=== PATIENT | female | born 1990 | race Two or more races ===

== ENCOUNTER 2024-06-05 20:04 | Emergency (ER) | payer MEDICAID, SELFPAY ==
[2024-06-05 20:06] VITALS: BMI 20.1
[2024-06-05 20:46] VITALS: BP 108/70; PULSE 76; RESP 16; TEMP 36.9; O2SAT 96
--- NOTE | 2024-06-05 21:12 | PD.EDRME ---
Rapid Medical Screening Exam RME Arrival date/time: 06/05/24 20:04 34F with history of alcoholic cirrhosis, hyperthyroidism, and psych presents to ED with 4 days of bright red rectal bleeding and some red/back vomitus. Patient states her last endoscopy and colonoscopy 2 months ago were benign, but the ones from last year showed pre-cancer cells. Chief Complaint: GI Bleed Time Seen by Provider: 06/05/24 22:51 Vital signs: Vital Signs Temperature 98.5 F 06/05/24 20:46 Pulse Rate 76 06/05/24 20:46 Respiratory Rate 16 06/05/24 20:46 Blood Pressure 108/70 06/05/24 20:46 Pulse Oximetry (%) 96 06/05/24 20:46 Oxygen Delivery Method Room Air 06/05/24 20:46
[2024-06-05 21:59] LABS: Basophils # (Auto) 0.1 Thou/mm3 (0.0-0.2); Basophils % (Auto) 1 % (0-2.5); Eosinophils # (Auto) 0.2 Thou/mm3 (0.0-0.5); Eosinophils % (Auto) 3 % (0-10); Hematocrit 39.5 % (36.0-46.0); Hemoglobin 13.5 g/dL (12.0-16.0); Immature Granulocytes % (Auto) 0 % (0-0); Immature Granulocytes Auto 0.02 Thou/mm3 (0.00-0.00); Lymphocytes # (Auto) 2.9 Thou/mm3 (1.0-4.8); Lymphocytes % (Auto) 37 % (10-50); Mean Corpuscular HGB Conc 34.2 g/dl (31.0-37.0); Mean Corpuscular Hemoglobin 31.8 pg (25.0-35.0); Mean Corpuscular Volume 93 fL (80-100); Monocytes # (Auto) 0.5 Thou/mm3 (0.0-0.8); Monocytes % (Auto) 6 % (0-12); Neutrophils # (Auto) 4.1 Thou/mm3 (1.8-7.7); Neutrophils % (Auto) 53 % (37-80); Nucleated Red Blood Cell % 0 /100 WBC (0); Platelet Count 222 Thou/mm3 (140-440); RDW Standard Deviation 45.2 fL (36.4-46.3); Red Blood Count 4.24 Miln/mm3 (4.00-5.20); White Blood Count 7.8 Thou/mm3 (3.6-11.0)
[2024-06-05 22:16] LABS: INR 1.1 (0.9-1.3); Partial Thromboplastin Time 27.1 Seconds (22.0-36.0); Prothrombin Time 11.7 Seconds (9.0-12.2)
[2024-06-05 22:24] LABS: Alanine Aminotransferase 24 U/L (10-49); Albumin, Serum 4.2 gm/dL (3.5-5.0); Albumin/Globulin Ratio 1.8 (1.2-2.2); Alkaline Phosphatase 118 U/L (46-116); Anion Gap 7 (7-16); Aspartate Amino Transferase 67 U/L (0-34); BUN/Creatinine Ratio 20 Ratio (12-20); Bilirubin,Total 1.2 mg/dL (0.3-1.2); Blood Urea Nitrogen 16 mg/dL (9-23); Calcium 9.3 mg/dL (8.3-10.6); Calcium (Corrected) 9.3 mg/dL (8.5-10.1); Carbon Dioxide 31.3 mMol/L (20.0-31.0); Chloride 94 mMol/L (98-107); Creatinine (Component) 0.8 mg/dL (0.6-1.3); Estimated Creatinine Clearance 79.5 mL/min (>60); Globulin 2.3 gm/dL (2.3-3.5); Glucose 96 mg/dL (74-106); Osmolality,Calculated 265 (275-295); Potassium 3.5 mMol/L (3.4-5.1); Sodium 132 mMol/L (136-145); Total Protein 6.5 gm/dL (5.7-8.2); eGFR > 60 See Note
--- NOTE | 2024-06-05 22:52 | PD.EDGIBLD ---
ED GI Bleed RME/HPI General Chief complaint: GI Bleed Stated complaint: VOMITING BLOOD, BLOOD IN STOOL Time Seen by Provider: 06/05/24 22:51 Arrival date/time: 06/05/24 20:04 34F with history of alcoholic cirrhosis, hyperthyroidism, and psych presents to ED with 4 days of bright red rectal bleeding and some red/black vomitus yesterday, but not today.. Patient states her last endoscopy and colonoscopy 2 months ago were benign, but the ones from last year showed pre-cancer cells. Limitations: no limitations RME / HPI RME / HPI Narrative: 06/05/24 20:04 34F with history of alcoholic cirrhosis, hyperthyroidism, and psych presents to ED with 4 days of bright red rectal bleeding and some red/back vomitus. Patient states her last endoscopy and colonoscopy 2 months ago were benign, but the ones from last year showed pre-cancer cells. Related Data Previous Rx's ?Medication ?Instructions ?Recorded spironolactone 25 mg tablet 25 mg PO QDAY #20 tabs 05/16/23 lidocaine 5 % topical ointment 1 applic topical BID PRN pain #30 06/05/24 grams ondansetron 4 mg disintegrating 4 mg PO Q8H PRN nausea and 06/05/24 tablet vomiting #14 tabs Allergies Allergy/AdvReac Type Severity Reaction Status Date / Time NKA* Allergy Uncoded 06/01/11 09:57 Review of Systems Review of Systems Systems Reviewed: All systems reviewed, normal except as documented Constitutional Constitutional: Reports system reviewed and no additional complaints, except as documented, Denies fever(s) and Denies headache(s) ENT Ears, Nose, Mouth, and Throat: Denies disequilibrium and Denies headache(s) Cardiovascular Cardiovascular: Reports system reviewed and no additional complaints, except as documented, Denies chest pain and Denies dyspnea Respiratory Respiratory: Reports system reviewed and no additional complaints, except as documented, Denies cough and Denies dyspnea Gastrointestinal Gastrointestinal: Reports system reviewed and no additional complaints, except as documented, Reports as per HPI, Denies abdominal pain, Reports hematemesis, Reports hematochezia, Reports nausea and Reports vomiting Neurologic Neurologic: Reports system reviewed and no additional complaints, except as documented, Denies confusion, Denies disequilibrium and Denies headache(s) Psychiatric Psychiatric: Denies confusion Past Medical History Social History SMOKING STATUS: Never smoker ED Exam General Limitations: Present no limitations General appearance: Present alert and in no apparent distress Head Head exam: Present atraumatic Eye Eye exam: Present normal appearance, PERRL and EOMI ENT ENT exam: Present normal exam, normal oropharynx and mucous membranes moist Neck Neck exam: Present normal inspection, full ROM and trachea midline Chest Chest inspection: Present normal inspection and symmetric chest wall rise Respiratory Respiratory exam: Present normal lung sounds bilaterally Cardiovascular Cardiovascular exam: Present regular rate, normal rhythm and normal heart sounds Abdominal Exam Abdominal exam: Present soft and normal bowel sounds Extremities Exam Extremities exam: Present normal inspection and full ROM Back Exam Back exam: Present normal inspection and full ROM Neurological Exam Neurological exam: Present alert, oriented X3 and CN II-XII intact Psychiatric Psychiatric exam: Present normal affect and normal mood Skin Skin exam: Present warm, dry, intact and normal color Course Quality Measures none Orders Category Date Time Status CBC Stat Lab 06/05/24 21:44 Completed CMP [Comprehensive Metabolic Panel] Stat Lab 06/05/24 21:44 Completed INR [Prothrombin Time with INR] Stat Lab 06/05/24 21:44 Completed PTT [Partial Thromboplastin Time] Stat Lab 06/05/24 21:44 Completed Vital Signs Vital signs: Vital Signs Temperature 98.5 F 06/05/24 20:46 Pulse Rate 76 06/05/24 20:46 Respiratory Rate 16 06/05/24 20:46 Blood Pressure 108/70 06/05/24 20:46 Pulse Oximetry (%) 96 06/05/24 20:46 Oxygen Delivery Method Room Air 06/05/24 20:46 O2 at 96% on RA and WNLs GI Bleed MDM Narrative MDM Narrative:: 34F with history of alcoholic cirrhosis, hyperthyroidism, and psych presents to ED with 4 days of bright red rectal bleeding and some red/black vomitus yesterday, but not today.. Patient states her last endoscopy and colonoscopy 2 months ago were benign, but the ones from last year showed pre-cancer cells. Physical exam reveals clear oropharynx. Normal WOB. Patient is afebrile, calm, and alert. No anemia or leukocytosis. CMP unremarkable. Coags normal. Cap Coverer and meds given. Patient data External records reviewed:: [facility] previous records Clinical information provided by:: patient Social determinants that could affect healthcare access:: alcohol use Patient has the following chronic illnesses:: alcoholic cirrhosis, hyperthyroidism, and psych How is presenting disease/condition affected by chronic disease/condition?: exacerbated by Evaluation data The following diagnostics were reviewed and interpreted by me:: lab results Lab and/or radiology exams considered but not ordered:: ordered Interpretation Summary: above Medications / Prescriptions Medications or Prescriptions considered but not ordered:: not ordered Medication administrations:: n/a Consultations Consultation(s) initiated? (list below): No Diagnosis GI bleed differential diagnosis: hemorrhoids, infectious diarrhea, esophageal varices, gastritis, Haley-Mckeon syndrome, Upper gastrointestinal hemorrhage, Lower gastrointestinal hemorrhage, hematochezia and anal fissure Most likely diagnosis given after review of the tests above:: GI bleed Admission Indicated Admission indicated?: not indicated Admission Request Was there a request for admission?: No Disposition Plan Disposition Plan: Discharge Discharge Attestation Discharge Attestation: The patient and all family members were given an opportunity to ask questions and understood the discharge instructions. Discharge instructions specifically effects, indications for sooner follow up or return to the emergency department, and the expected course of current diagnosis. Patient condition: Stable Discharge Plan Plan Patient Disposition: HOME (Self Care) Disposition Comment: Stable Prescriptions/Referrals Prescriptions/Med Rec: New ondansetron 4 mg tablet,disintegrating 4 mg PO Q8H PRN (Reason: nausea and vomiting) Qty: 14 0RF lidocaine 5 % ointment 1 applic topical BID PRN (Reason: pain) Qty: 30 0RF Rx Instructions: Use 10-15 prior to having BM. No Action spironolactone 25 mg tablet 25 mg PO QDAY Qty: 20 0RF Problem List Clinical Impression: GI bleed Patient/Caregiver Discharge Instructions Education Materials: ED Upper GI Bleeding (Stable) Additional Instructions: Please follow-up with PCP within 24-48 hours and return immediately if symptoms worsen. Follow-up with specialist on Saturday. Print Language: Italian Stand Alone Forms: Patient Portal Info Letter MICHEL/CRUZ Supervising Physician MICHEL/CRUZ Supervising Physician: Dr. Ambriz
[2024-06-05 23:32] VITALS: BP 120/82; PULSE 68; RESP 19; TEMP 37.1; O2SAT 97
== END 2024-06-05 23:33 | disposition home or self-care (01) ==
LOC: SERX 23:01
PROVIDERS: Physician Assistant; Emergency Provider Emergency Medicine; PCP Family Medicine
DX: K62.5 Hemorrhage of anus and rectum (principal); K70.30 Alcoholic cirrhosis of liver without ascites; E05.90 Thyrotoxicosis, unspecified without thyrotoxic crisis or storm
CPT/HCPCS: 36415; 80053; 85025; 85610; 85730; 99283